=== PATIENT | male | born 1945 | race Caucasian/White ===

== ENCOUNTER 2018-01-15 07:53 | Inpatient (IN) | END 2018-01-23 16:05 | disposition home health service (06) | DRG 669 ==

== ENCOUNTER 2018-03-15 10:27 | Observation (INO) | payer OTHER ==
[~2018-03-15] VITALS: Ht 160 cm; Wt 63.1 kg
[~2018-03-15 10:27] MED LIST: ASPI81TA52 PO; ATOR20TA38 PO; CARV3.1260 PO; CIPR500T4 PO; DONE5TAB53 PO; OXYB5TAB22 PO; TAMS0.4C2 PO
--- NOTE | 2018-03-15 12:56 | ERD ---
ER Documentation Chief Complaint Chief Complaint LEFT FLANK PAIN - HAD KIDNEY SURGERY 2 MONTHS AGO; CATHETER PROBELM HPI 72-year-old man status post lithotripsy and left nephrostomy tube placement for hydronephrosis and large left ureteral stone about 2 months ago presents with left flank pain and decreased urine overall and decreased urine in the leg bag beginning last night. He complains of suprapubic distention and pain as well and suspects he has a urinary tract infection. He has had no recent fevers or chills, no recent antibiotic use, no vomiting or diarrhea, no complaints of chest pain or shortness of breath, no hematuria. ROS All systems reviewed and are negative except as per history of present illness. Medications Home Meds Active Scripts Carvedilol* (Carvedilol*) 3.125 Mg Tablet, 3.125 MG PO BID for 30 Days, TAB 3 Refills Prov:KAREEM CALIXTO 01/23/18 Reported Medications Clonidine Hcl* (Clonidine Hcl*) 0.1 Mg Tab, 0.1 MG PO DAILY, TAB 03/15/18 Famotidine* (Famotidine*) 20 Mg Tablet, 20 MG PO NEEDED, #30 TAB 03/15/18 Hydrochlorothiazide* (Hydrochlorothiazide*) 12.5 Mg Tablet, 12.5 MG PO NEEDED, #30 TAB 03/15/18 Ferrous Sulfate* (Ferrous Sulfate*) 325 Mg Tabec, 325 MG PO DAILY, TAB 03/15/18 Benazepril Hcl* (Benazepril Hcl*) 40 Mg Tablet, 40 MG PO DAILY, #30 TAB 03/15/18 Atorvastatin Calcium* (Atorvastatin Calcium*) 20 Mg Tablet, 20 MG PO QHS, #30 TAB 01/15/18 Donepezil* (Aricept*) 5 Mg Tablet, 5 MG PO DAILY, TAB 01/15/18 Tamsulosin Hcl* (Tamsulosin Hcl*) 0.4 Mg Cap.er.24h, 0.4 MG PO HS, CAP 01/15/18 Aspirin (Low Dose Aspirin) 81 Mg Tablet.dr, 81 MG PO DAILY, #30 TAB 01/15/18 Discontinued Reported Medications Oxybutynin Chloride* (Ditropan* XL) 5 Mg Tabsr, 5 MG PO DAILY, TAB.SA 01/15/18 Discontinued Scripts Ciprofloxacin Hcl* (Ciprofloxacin Hcl*) 500 Mg Tablet, 500 MG PO BID for 7 Days, #14 TAB Prov:KAREEM CALIXTO 01/23/18 Allergies Allergies: Coded Allergies: No Known Allergy (Unverified , 03/15/18) PMhx/Soc Left large ureteral stone, moderate-severe left hydronephrosis, status post lithotripsy and left nephrostomy tube, dementia, hypertension, CAD History of Surgery: Yes (CABG) Anesthesia Reaction: No Hx Neurological Disorder: Yes Hx Respiratory Disorders: No Hx Cardiac Disorders: Yes (heart attack) Hx Psychiatric Problems: No Hx Miscellaneous Medical Probl: No Hx Alcohol Use: No Hx Substance Use: No Hx Tobacco Use: No Physical Exam Vitals Vital Signs Date Temp Pulse Resp B/P (MAP) Pulse Ox O2 O2 Flow FiO2 Time Delivery Rate 03/15/18 97.8 73 18 113/69 99 Room Air 14:51 (84) 03/15/18 98.4 88 19 162/84 99 10:34 (110) Physical Exam GENERAL: Well-developed, well-nourished, moderate discomfort, afebrile, appears dehydrated HEENT: Dry mucous membranes, pink conjunctiva, no cervical spine tenderness or step-off deformities, no goiter, no jaundice or icterus, extraocular movements intact without pain. NEURO: Alert and oriented 3, cranial nerves II through XII intact bilaterally, pupils equal round reactive to light, no focal deficits or facial asymmetry, sensation intact distally Strength 5/5 in upper and lower extremities bilaterally CARDIAC: Regular rate and rhythm, no murmurs rubs or gallops LUNGS: Clear bilaterally no wheezing crackles or stridor ABDOMEN: Soft nontender, no guarding, no rigidity, no rebound, no psoas sign no obturator sign. Normoactive bowel sounds SKIN: Warm and dry to touch, no abrasions, contusions, or hematomas, no lacerations, no ecchymosis, no target lesions, and without ulcers EXTREMITIES: No clubbing cyanosis or edema, calves are bilaterally symmetrical, no Homans sign, no popliteal cord sign. Distal pulses equal and bilateral PSYCH: Normal affect without agitation or irritability Result Diagram: 03/15/18 1321 03/15/18 1321 Results 24 hrs Laboratory Tests Test 03/15/18 13:14 03/15/18 13:21 Urine Color YELLOW Urine Clarity CLOUDY Urine pH 5.0 Urine Specific [place] 1.017 Urine Ketones NEGATIVE mg/dL Urine Nitrite POSITIVE mg/dL Urine Bilirubin NEGATIVE mg/dL Urine Urobilinogen NEGATIVE mg/dL Urine Leukocyte Esterase 3+ Mack/ul Urine Microscopic RBC 110 /HPF Urine Microscopic WBC > 182 /HPF Urine Bacteria FEW /HPF Urine Hemoglobin 2+ mg/dL Urine Glucose NEGATIVE mg/dL Urine Total Protein 2+ mg/dl White Blood Count 8.4 10^3/ul Red Blood Count 4.43 10^6/ul Hemoglobin 13.8 g/dl Hematocrit 42.6 % Mean Corpuscular Volume 96.2 fl Mean Corpuscular Hemoglobin 31.2 pg Mean Corpuscular Hemoglobin Concent 32.4 g/dl Red Cell Distribution Width 12.7 % Platelet Count 227 10^3/UL Mean Platelet Volume 9.9 fl Immature Granulocytes % 0.400 % Neutrophils % 54.5 % Lymphocytes % 31.1 % Monocytes % 9.9 % Eosinophils % 3.5 % Basophils % 0.6 % Nucleated Red Blood Cells % 0.0 /100WBC Immature Granulocytes # 0.030 10^3/ul Neutrophils # 4.6 10^3/ul Lymphocytes # 2.6 10^3/ul Monocytes # 0.8 10^3/ul Eosinophils # 0.3 10^3/ul Basophils # 0.1 10^3/ul Nucleated Red Blood Cells # 0.0 10^3/ul Prothrombin Time 13.1 Sec Prothrombin Time Ratio 1.0 INR International Normalized Ratio 0.98 Activated Partial Thromboplast Time 34.5 Sec Sodium Level 143 mmol/L Potassium Level 4.2 mmol/L Chloride Level 105 mmol/L Carbon Dioxide Level 26 mmol/L Anion Gap 12 Blood Urea Nitrogen 16 mg/dl Creatinine 0.91 mg/dl Est Glomerular Filtrat Rate mL/min mL/min Glucose Level 101 mg/dl Calcium Level 9.9 mg/dl Total Bilirubin 0.3 mg/dl Direct Bilirubin 0.00 mg/dl Indirect Bilirubin 0.3 mg/dl Aspartate Amino Transf (AST/SGOT) 20 IU/L Alanine Aminotransferase (ALT/SGPT) 12 IU/L Alkaline Phosphatase 134 IU/L Total Protein 8.3 g/dl Albumin 4.5 g/dl Globulin 3.80 g/dl Albumin/Globulin Ratio 1.18 Lipase 54 U/L Current Medications Medications Dose Sig/Jenae Start Time Status Last (Trade) Ordered Route PRN Stop Time Admin Dose Reason Admin Lactated 1,000 ml @ Q1H STAT 03/15/18 DC 03/15/18 Ringer's 1,000 mls/hr IV 13:11 13:33 03/15/18 14:10 Ketorolac 15 mg ONCE STAT 03/15/18 DC 03/15/18 Tromethamine IV 13:11 13:33 (Toradol) 03/15/18 13:12 Cefepime HCl 50 ml @ ONCE ONCE 03/15/18 DC 03/15/18 100 mls/hr IVPB 14:30 14:46 03/15/18 14:59 Sodium 1,000 ml @ Q1H ONCE 03/15/18 DC 03/15/18 Chloride 1,000 mls/hr IV 15:00 14:46 03/15/18 15:59 Procedures/MDM IV line was established patient was placed on quality assurance monitor body rhythm strip revealed a sinus rhythm at about 80 bpm with upright P and T waves. Patient was afebrile I administered 1 L normal saline IV, Toradol 15 mg IV with good pain relief. CBC was unremarkable, electrolytes normal, liver function tests normal, coagulation profile normal CT scan of the abdomen and pelvis was performed, IMPRESSION: 1. Left percutaneous nephrostomy catheter and left ureteral stent are in place. There is mild to moderate left hydronephrosis, slightly improved when compared to the prior CT. 8 mm calculus is present within the mid/distal left ureter a djacent to the stent. 2. Coronary arterial and aortoiliac atherosclerotic calcifications. 3. Mildly enlarged prostate - correlate with PSA level. 4. No evidence of bowel obstruction, mass, lymphadenopathy, or acute inflammatory process. Urine analysis was positive for infection so I treated him here with cefepime 1 g IV. I also spoke to his urologist, Dr. Ayala who agreed with the above plan and management and agreed to consult the patient if admitted. The patient does have an active UTI and history of hydronephrosis, lithotripsy, and left nephrostomy tube so he will be admitted for continued IV hydration and IV antibiotics. Departure Diagnosis: Primary Impression: Acute UTI Additional Impressions: Dehydration Ureteral stone with hydronephrosis Condition: JUAN LUIS Vale MD Mar 15, 2018 12:56
[2018-03-15] MEDS ORDERED: KETOROLAC 15 MG INJ IV STA (13:11)
[2018-03-15] MEDS ORDERED: LACTATED RINGER'S 1,000 ML IV STA (13:11)
[2018-03-15] MEDS ORDERED: CEFEPIME 1GM/50 ML (PMX) 50 ML IVPB ONE (14:30)
[2018-03-15] MEDS ORDERED: BENA40TA56 PO (14:47)
[2018-03-15] MEDS ORDERED: HYDR12.58 PO (14:48)
[2018-03-15] MEDS ORDERED: FER325 PO (14:48)
[2018-03-15] MEDS ORDERED: FAMO20TA18 PO (14:49)
[2018-03-15] MEDS ORDERED: CLON-379 PO (14:50)
[2018-03-15] MEDS ORDERED: SOD CHLORIDE 0.9% 1,000 ML IV ONE (15:00)
[2018-03-15] MEDS ORDERED: SOD CHLORIDE 0.9% 1,000 ML IV SCH (18:54)
[2018-03-15] MEDS ORDERED: ONDANSETRON 4 MG INJ IV PRN (19:00)
[2018-03-15] MEDS ORDERED: ACETAMINOPHEN 325 MG TAB PO PRN (19:00)
--- NOTE | 2018-03-15 20:57 | CONS ---
Date/Time of Note Date/Time of Note DATE: 03/15/18 TIME: 20:52 Assessment/Plan Assessment/Plan Assessment/Plan This is a 72-year-old male who is well-known to me from his prior admission. He has a history of large left ureteral stone with obstruction. He underwent cystoscopy and left ureteroscopy and laser lithotripsy to the stone but the stone was occluding the ureter and impacted. He required to have a left ne phrostomy and had the radiologist put an antegrade JJ stent. I was planning on bringing the patient back to do ureteroscopy and laser lithotripsy again on the stone. He presented to the emergency room today stating that the left nephrostomy tube is not draining and having abdominal pain. He was evaluated by the emergency room physician and thought to have an infection therefore he was admitted to the hospital. He underwent a CT scan of the abdomen and pelvis and that showed the nephrostomy tube in place as well as a JJ stent and the stone still in the same location. At the present time we will treat the infection and once that is controlled I will try to do the ureteroscopy and laser lithotripsy. Result Diagram: 03/15/18 1321 03/15/18 1321 Results 24hrs Laboratory Tests Test 03/15/18 13:14 03/15/18 13:21 Urine Color YELLOW Urine Clarity CLOUDY A Urine pH 5.0 Urine Specific [place] 1.017 Urine Ketones NEGATIVE Urine Nitrite POSITIVE A Urine Bilirubin NEGATIVE Urine Urobilinogen NEGATIVE Urine Leukocyte Esterase 3+ H Urine Microscopic RBC 110 H Urine Microscopic WBC > 182 H Urine Bacteria FEW A Urine Hemoglobin 2+ H Urine Glucose NEGATIVE Urine Total Protein 2+ H White Blood Count 8.4 Red Blood Count 4.43 L Hemoglobin 13.8 L Hematocrit 42.6 # Mean Corpuscular Volume 96.2 Mean Corpuscular Hemoglobin 31.2 Mean Corpuscular Hemoglobin Concent 32.4 Red Cell Distribution Width 12.7 Platelet Count 227 # Mean Platelet Volume 9.9 Immature Granulocytes % 0.400 Neutrophils % 54.5 Lymphocytes % 31.1 Monocytes % 9.9 Eosinophils % 3.5 Basophils % 0.6 Nucleated Red Blood Cells % 0.0 Immature Granulocytes # 0.030 Neutrophils # 4.6 Lymphocytes # 2.6 Monocytes # 0.8 Eosinophils # 0.3 Basophils # 0.1 Nucleated Red Blood Cells # 0.0 Prothrombin Time 13.1 Prothrombin Time Ratio 1.0 INR International Normalized Ratio 0.98 Activated Partial Thromboplast Time 34.5 Sodium Level 143 Potassium Level 4.2 Chloride Level 105 Carbon Dioxide Level 26 Anion Gap 12 Blood Urea Nitrogen 16 Creatinine 0.91 Est Glomerular Filtrat Rate mL/min Glucose Level 101 Calcium Level 9.9 Total Bilirubin 0.3 Direct Bilirubin 0.00 Indirect Bilirubin 0.3 Aspartate Amino Transf (AST/SGOT) 20 Alanine Aminotransferase (ALT/SGPT) 12 L Alkaline Phosphatase 134 H Total Protein 8.3 H Albumin 4.5 Globulin 3.80 H Albumin/Globulin Ratio 1.18 Lipase 54 Consultation Date/Type/Reason Admit Date/Time Mar 15, 2018 at 18:06 Date of Consultation: Mar 15, 2018 Type of Consult Urology Reason for Consultation Left ureteral stone with hydronephrosis. Possible urinary tract infection Requesting Provider: JUAN LUIS MORA MD Hx of Present Illness This is a 72-year-old male who is well-known to me from his prior admission. He has a history of large left ureteral stone with obstruction. He underwent cystoscopy and left ureteroscopy and laser lithotripsy to the stone but the stone was occluding the ureter and impacted. He required to have a left nephrostomy and had the radiologist put an antegrade JJ stent. I was planning on bringing the patient back to do ureteroscopy and laser lithotripsy again on the stone. He presented to the emergency room today stating that the left nephrostomy tube is not draining and having abdominal pain. He was evaluated by the emergency room physician and thought to have an infection therefore he was admitted to the hospital. He underwent a CT scan of the abdomen and pelvis and that showed the nephrostomy tube in place as well as a JJ stent and the stone still in the same location. Past Medical History Medications Current Medications Sodium Chloride 1,000 ml @ 200 mls/hr Q5H IV Last administered on 03/15/18at 19:03; Admin Dose 200 MLS/HR; Start 03/15/18 at 18:54; Stop 03/15/18 at 23:53 Ondansetron HCl (Zofran Inj) 4 mg BRIDGE ORDER PRN IV NAUSEA AND/OR VOMITING; Start 03/15/18 at 19:00; Stop 03/16/18 at 18:59 Acetaminophen (Tylenol Tab) 650 mg ER BRIDGE PRN PO MILD PAIN(1-3)OR ELEVATED TEMP; Start 03/15/18 at 19:00; Stop 03/16/18 at 18:59 Allergies: Coded Allergies: No Known Allergy (Unverified , 03/15/18) Past Surgical History Past Surgical Hx: coronary bypass surgery Social History Smoking Status: Never smoker Exam/Review of Systems Vital Signs Vitals Vital Signs Date Temp Pulse Resp B/P (MAP) Pulse Ox O2 O2 Flow FiO2 Time Delivery Rate 03/15/18 81 16 133/71 97 Room Air 20:26 (91) 03/15/18 97.8 14:51 Exam Constitutional: alert Medications Medications Current Medications Sodium Chloride 1,000 ml @ 200 mls/hr Q5H IV Last administered on 03/15/18at 19:03; Admin Dose 200 MLS/HR; Start 03/15/18 at 18:54; Stop 03/15/18 at 23:53 Ondansetron HCl (Zofran Inj) 4 mg BRIDGE ORDER PRN IV NAUSEA AND/OR VOMITING; Start 03/15/18 at 19:00; Stop 03/16/18 at 18:59 Acetaminophen (Tylenol Tab) 650 mg ER BRIDGE PRN PO MILD PAIN(1-3)OR ELEVATED TEMP; Start 03/15/18 at 19:00; Stop 03/16/18 at 18:59 YE MOSELEY MD Mar 15, 2018 20:57
[2018-03-15 21:53] VITALS: BP 133/65; PULSE 74; RESP 18
[2018-03-15 22:29] VITALS: Ht 160 cm; Wt 63.1 kg
[2018-03-16] MEDS ORDERED: ONDANSETRON 4 MG INJ IV PRN (00:30)
[2018-03-16] MEDS ORDERED: morphine 2 MG INJ IV PRN (00:30)
[2018-03-16] MEDS ORDERED: LEVOFLOXACIN 500 MG TAB PO ONE (00:30)
[2018-03-16] MEDS ORDERED: KETOROLAC 30 MG INJ IV PRN (00:30)
[2018-03-16] MEDS ORDERED: ACETAMINOPHEN 325 MG TAB PO PRN (00:30)
[2018-03-16 01:32] VITALS: BP 119/64; PULSE 72; RESP 18
[2018-03-16] MEDS ORDERED: CEFTRIAXONE 1 GM/50 ML (PMX) 50 ML IVPB SCH (07:30)
[2018-03-16 07:32] VITALS: BP 114/69; PULSE 70; RESP 18
[2018-03-16] MEDS ORDERED: DONEPEZIL 5 MG TAB PO SCH (09:00)
[2018-03-16] MEDS ORDERED: FAMOTIDINE 20 MG TAB PO SCH (09:00)
[2018-03-16] MEDS ORDERED: BENAZEPRIL 40 MG TAB PO SCH (09:00)
--- NOTE | 2018-03-16 09:23 | HP ---
DATE OF ADMISSION: 03/15/2018 CHIEF COMPLAINT: Left flank pain. HISTORY OF PRESENT ILLNESS: A 72-year-old male with a history of large left ureteral stone status po st left ureteroscopy and laser lithotripsy followed by a nephrostomy placement, presented to emergenc y room with a complaint of left flank pain for several days. He reported that the left nephrostomy t ube was not draining. He was having abdominal pain. The patient denies any fevers or chills. No na usea or vomiting. He was evaluated by the urologist. CAT scan of the abdomen and pelvis that showed that the nephrostomy tube was in place as well as ureteral stent. Stone was still in the same locat ion with associated hydronephrosis. At the time of my visit, he denied any abdominal pain or flank p ain. The patient was ambulating comfortably. PAST MEDICAL HISTORY: 1. Recent history of left ureteral stone status post ureteral stent placement and nephrostomy placem ent. 2. Benign prostatic hyperplasia. 3. Hypertension. 4. Hyperlipidemia. 5. Alzheimer's dementia. PHYSICAL EXAMINATION: GENERAL: Well-developed, well-nourished elderly male, who is in no apparent distress. VITAL SIGNS: Stable. He is afebrile. HEENT: Extraocular muscles intact. Pupils equal, reactive to light bilaterally. Sclerae are anicte teddy. Oropharynx is clear and moist. NECK: Supple, no JVD, no carotid bruits. LUNGS: Clear to auscultation bilaterally. HEART: Regular rate and rhythm. No murmurs or gallops. ABDOMEN: Soft, nontender, nondistended. Normoactive bowel sounds. Left flank nephrostomy tube in p lace and no tenderness. NEUROLOGICAL: Nonfocal. EXTREMITIES: No clubbing, cyanosis, or edema. LABORATORY DATA: CBC and basic metabolic panel are within normal limits. ASSESSMENT: A 72-year-old male with a complaint of; 1. Left flank pain. 2. Urinary tract infection. 3. Left ureteral stone status post ureteral stent placement. 4. Status post left nephrostomy placement. 5. Hypertension. 6. Hyperlipidemia. 7. Benign prostatic hyperplasia. 8. Alzheimer's dementia. PLAN: 1. Admit to med/surg. Continue Rocephin 1 gram daily. Check blood and urine culture results. Dr. Ayala was consulted and the case was discussed with him. 2. Proceed with a lithotripsy in 3 days. Dictated By: FELICIANO MCGRAW/NASRIN Conf#: [id number] DID#: [id number] CC: RAYMUNDO QUIÑONEZ MD;*EndCC*
[2018-03-16] MEDS ORDERED: CEPH500C PO (09:31)
--- NOTE | 2018-03-16 14:20 | DS ---
DATE OF ADMISSION: 03/15/2018 DATE OF DISCHARGE: DISCHARGE DIAGNOSES: 1. A 72-year-old male with left flank pain, resolved. 2. History of left ureteral stone, status post ureteral stent placement. 3. Status post left nephrostomy tube placement. 4. Hypertension. 5. Benign prostatic hyperplasia. 6. Hyperlipidemia. HOSPITAL COURSE: A 72-year-old male presented to the emergency room with complaints of left flank pa in for several days. There was no associated fever or chills. Initial evaluation included a CAT sca n that revealed nephrostomy tube was in place and the stent was also in place. The patient was evalu ated by Dr. Ayala. At the time of my visit, he was asymptomatic. There was no complaint of flank pain or abdominal pain. Urinalysis revealed evidence of UTI which was infected with stent in place. There was no associated leukocytosis. I prescribed Keflex 500 mg 3 times daily for 7 days. The pat ient was cleared by Dr. Ayala for discharge. He will follow up with Dr. Ay[facility] to undergo lithotripsy after the urine is clean. Dictated By: FELICIANO RAMIREZ MD SK/NTS Conf#: [id number] DID#: [id number] CC: RAYMUNDO QUIÑONEZ MD; YE AYALA MD;*End*
[2018-03-16 14:32] VITALS: BP 108/58; PULSE 70; RESP 16
[2018-03-16] MEDS ORDERED: ATORVASTATIN 20 MG TAB PO SCH (21:00)
[2018-03-16] MEDS ORDERED: TAMSULOSIN (SR) 0.4 MG CAP PO SCH (21:00)
== END 2018-03-16 15:20 | disposition home health service (06) ==
LOC: E/R 10:27 → 2NE 18:06
PROVIDERS: ADMIT Internal Medicine; ATTEND Internal Medicine
DX: T83.511A Infection and inflammatory reaction due to indwelling urethral catheter, initial encounter (principal); N39.0 Urinary tract infection, site not specified; Y84.6 Urinary catheterization as the cause of abnormal reaction of the patient, or of later complication, without mention of misadventure at the time of the procedure; N40.1 Benign prostatic hyperplasia with lower urinary tract symptoms; I10 Essential (primary) hypertension; E78.5 Hyperlipidemia, unspecified; Z93.6 Other artificial openings of urinary tract status
CPT/HCPCS: 36415; 74176; 80053; 80061; 80076; 81001; 83690; 85025; 85610; 85730; 87086; 96374; 96375; J0692; J0696; J1885; J7030; J7120; Z7500; Z7502; Z7610; G0378

== ENCOUNTER 2018-03-23 10:30 | Day surgery (SDC) | payer OTHER ==
[2018-03-23] VITALS (12 sets, daily range): BP systolic 127–155; BP diastolic 67–99; PULSE 70–96; RESP 9–18; Ht 157.5 cm; Wt 62.5 kg
[~2018-03-23] VITALS: Ht 157.5 cm; Wt 62.5 kg
[~2018-03-23 10:30] MED LIST changes: +BENA40TA56 PO; +CEPH500C PO; -CIPR500T4 PO; +CLON-379 PO; +FAMO20TA18 PO; +FER325 PO; +HYDR12.58 PO; +MIDAZOLAM 1 MG/ML 2 ML INJ ONE; -OXYB5TAB22 PO; +SEVOFLURANE 15 MIN ONE
--- NOTE | 2018-03-23 12:15 | HPN ---
Date/Time of Note Date/Time of Note DATE: 03/23/18 TIME: 12:14 Interval H&P Admission Note Pt. seen H&P reviewed: No system changes YE MOSELEY MD Mar 23, 2018 12:15
--- NOTE | 2018-03-23 12:41 | PREAC ---
Date/Time of Note Date/Time of Note DATE: 03/23/18 TIME: 12:38 Anesthesia Eval and Record Evaluation Time Pre-Procedure Interview DATE: 03/23/18 TIME: 12:38 Age 72 Sex male NPO: 8 hrs Preoperative diagnosis Left Ureter stone Planned procedure Cystoscopy and Left Ureteroscopy and Lithotripsy and stent placement Past Medical History Past Medical History: Includes Cardio: HTN, Dyslipidemia Renal: Other (Kiney Stone) Surgery & Anesthesia Issues No known issue Meds Anticoagulation: No Beta [place] within 24 hr: No Reason Beta [place] not given: Pt. not on B-[place] Active Scripts Cephalexin* (Cephalexin*) 500 Mg Capsule, 500 MG PO Q8 for 7 Days, #21 CAP Prov:FELICIANO RAMIREZ MD 03/16/18 Carvedilol* (Carvedilol*) 3.125 Mg Tablet, 3.125 MG PO BID for 30 Days, TAB 3 Refills Prov:KAREEM CALIXTO 01/23/18 Reported Medications Clonidine Hcl* (Clonidine Hcl*) 0.1 Mg Tab, 0.1 MG PO DAILY, TAB 03/15/18 Famotidine* (Famotidine*) 20 Mg Tablet, 20 MG PO NEEDED, #30 TAB 03/15/18 Hydrochlorothiazide* (Hydrochlorothiazide*) 12.5 Mg Tablet, 12.5 MG PO NEEDED, #30 TAB 03/15/18 Ferrous Sulfate* (Ferrous Sulfate*) 325 Mg Tabec, 325 MG PO DAILY, TAB 03/15/18 Benazepril Hcl* (Benazepril Hcl*) 40 Mg Tablet, 40 MG PO DAILY, #30 TAB 03/15/18 Atorvastatin Calcium* (Atorvastatin Calcium*) 20 Mg Tablet, 20 MG PO QHS, #30 TAB 01/15/18 Donepezil* (Aricept*) 5 Mg Tablet, 5 MG PO DAILY, TAB 01/15/18 Tamsulosin Hcl* (Tamsulosin Hcl*) 0.4 Mg Cap.er.24h, 0.4 MG PO HS, CAP 01/15/18 Aspirin (Low Dose Aspirin) 81 Mg Tablet.dr, 81 MG PO DAILY, #30 TAB 01/15/18 Meds reviewed: Yes Allergies Coded Allergies: No Known Allergy (Unverified , 03/23/18) Allergies Reviewed: Yes Labs/Studies Labs Reviewed: Reviewed by anesthesiologist test: N/A Studies: ECG (NSR), CXR (n/a) Pre-procedure Exam Last vitals Vital Signs Date Temp Pulse Resp B/P (MAP) Pulse Ox O2 O2 Flow FiO2 Time Delivery Rate 03/23/18 97.9 74 18 128/77 96 Room Air 11:32 (94) Airway: Adequate mouth opening, Adequate thyromental dist Mallampati: Mallampati II Teeth: Normal Lung: Normal Heart: Normal ASA Physical Status ASA physical status: 3 Emergency: None Planned Anesthetic General/MAC: LMA Planned Pain Management Parenteral pain med Pre-operative Attestations Prior to commencing anesthesia and surgery, the patient was re-evaluated, there was verification of: *The patient's identity *The results of appropriate recent lab work and preoperative vital signs *The above evaluation not changing prior to induction *Anesthetic plan, risk benefits, alternative and complications discussed with patient/family; questions answered; patient/family understands, accepts and wishes to proceed. FRANCO GARCIA MD Mar 23, 2018 12:41
[2018-03-23] MEDS ORDERED: FENTAnyl 50 MCG/ML VIAL ONE (12:44)
[2018-03-23] MEDS ORDERED: EPHEDrine SULFATE 50 MG/5 ML SYG ONE (12:57)
[2018-03-23] MEDS ORDERED: CEFAZOLIN 1 GM INJ ONE (12:58)
[2018-03-23] MEDS ORDERED: ROCURONIUM 50 MG INJ ONE ×2 (12:58→14:05)
[2018-03-23] MEDS ORDERED: PROPOFOL 20 ML ONE (12:58)
[2018-03-23] MEDS ORDERED: DIPHENHYDRAMINE 50 MG INJ IV PRN (13:00)
[2018-03-23] MEDS ORDERED: hydrALAzine 20 MG INJ IV PRN (13:00)
[2018-03-23] MEDS ORDERED: HYDROmorphONE 1 MG/5 ML IV SYRINGE IV PRN ×3 (13:00)
[2018-03-23] MEDS ORDERED: LABETALOL HCL 20MG INJ IV PRN (13:00)
[2018-03-23] MEDS ORDERED: ONDANSETRON 4 MG INJ IV PRN (13:00)
[2018-03-23] MEDS ORDERED: MEPERIDINE 25 MG INJ IV PRN (13:00)
[2018-03-23] MEDS ORDERED: FENTAnyl 50 MCG/ML VIAL IV PRN ×3 (13:00)
[2018-03-23] MEDS ORDERED: OXYCODONE/ACETAMINOPHEN (5/325) TAB PO PRN (13:00)
[2018-03-23] MEDS ORDERED: EPHEDrine SULFATE 50 MG/5 ML SYG IV PRN (13:00)
[2018-03-23] MEDS ORDERED: METOCLOPRAMIDE 10 MG INJ IV PRN (13:00)
[2018-03-23] MEDS ORDERED: DEXAMETHASONE 4 MG/ML 5 ML INJ ONE (13:20)
[2018-03-23] MEDS ORDERED: ONDANSETRON 4 MG INJ ONE (13:20)
[2018-03-23] MEDS ORDERED: METOCLOPRAMIDE 10 MG INJ ONE (13:20)
[2018-03-23] MEDS ORDERED: KETOROLAC 30 MG INJ ONE (13:20)
[2018-03-23] MEDS ORDERED: NEOSTIGMINE 3 MG/3 ML SYRINGE ONE (14:19)
[2018-03-23] MEDS ORDERED: GLYCOPYRROLATE 0.4 MG INJ ONE (14:19)
--- NOTE | 2018-03-23 14:36 | PAC ---
Date/Time of Note Date/Time of Note DATE: 03/23/18 TIME: 14:35 Post-Anesthesia Notes Post-Anesthesia Note Last documented vital signs Vital Signs Date Temp Pulse Resp B/P (MAP) Pulse Ox O2 O2 Flow FiO2 Time Delivery Rate 03/23/18 97.9 74 18 128/77 96 Room Air 14:32 (94) Activity: WNL Respiratory function: WNL Cardiovascular function: WNL Mental status: Baseline Pain reasonably controlled: Yes Hydration appropriate: Yes Nausea/Vomiting absent: Yes FRANCO GARCIA MD Mar 23, 2018 14:35
--- NOTE | 2018-03-23 14:45 | OPR ---
Date/Time of Note Date/Time of Note DATE: 03/23/18 TIME: 14:37 Operative Report Procedure Date: Mar 23, 2018 Preoperative Diagnosis Left mid ureteral stone with obstruction Postoperative Diagnosis Same Operation/Procedure Performed Cystoscopy, left ureteroscopy, laser lithotripsy, removal and replacement of left ureteral JJ stent and removal of left nephrostomy tube Surgeon see signature line Evaporator Operator Molasses Lul Cuenca Anesthesia Type: general Anesthesiologist: FRANCO GARCIA MD Estimated Blood Loss: none Transfusion none Specimen Left ureteral stone fragments Grafts/Implants none Tubes/Drains Left ureteral JJ stent 6 [place] by 22 cm long Complications none Pt Condition Post Procedure: stable Disposition: PACU Indications Large left mid ureteral stone with obstruction Procedure Description The patient was brought to the operating room. Time out was done the patient was identified by her name, birthdate, the procedure and the side of the procedure. The patient was given 2 g of Ancef IV at the start of the procedure. The patient was then positioned in the lithotomy position and the genital area was prepped and draped in the usual sterile manner. #21 [place] cystoscope sheath was introduced into the bladder, urine was collected for culture and sensitivity. The distal end of the left ureteral JJ stent was then grasped and pulled out to the urethral meatus. The distal curl of the stent was then cut and then I introduced a 0.035 zip wire into the lumen and advanced it under fluoroscopy all the way up to the kidney. The old JJ stent was then removed. A dual lumen catheter was then advanced on the wire and through the second lumen of the catheter a 0.035 sensor wire was passed to the kidney. The dual-lumen was then removed and the sensor wire was used as a safety wire and secured, the other wire was used to advance the rigid ureteroscope on it. The ureteroscope was advanced to the level of the stone, the stone was visualized, then the wire was removed and the 265 m laser fiber was used and the holmium laser was used to break the stone into multiple pieces. these pieces were then basketed one at a time and dropped into the bladder, multiple pieces were large that needed further breaking by the laser and once that was done the remaining stone fragments were removed and the ureter was cleared completely from the stone fragments. Then I did the cystoscopy and drained all the stone fragments out of the bladder. Then I reintroduced the cystoscope on the safety wire and inserted a 6 [place] by 22 cm long JJ stent in the left ureter under fluoroscopy, had its proximal end curling into the kidney and the distal end curling into the bladder. The distal end is attached to a string that was brought out through the urethra and taped with 2 pieces of Tegaderm to his penis. I then remove the dressing over his nephrostomy tube and got the nephrostomy and pulled it out of him. A dressing was put on the site of the nephrostomy. The patient tolerated the procedure well and was transferred to recovery room in stable and satisfactory condition YE MOSELEY MD Mar 23, 2018 14:44
[2018-03-23] MEDS ORDERED: HYDROCODONE/APAP (5/325) TAB PO PRN (15:00)
== END 2018-03-23 16:44 | disposition home or self-care (01) ==
LOC: SDS 10:30
PROVIDERS: ATTEND Urology
DX: N20.1 Calculus of ureter (principal)
CPT/HCPCS: 52353; 74430; 87086; J0690; J1100; J1885; J2405; J2710; J2765; J3010; Z7610; 88300; C2617; J2250

== ENCOUNTER 2018-05-03 12:15 | Inpatient (IN) | payer OTHER ==
[~2018-05-03] VITALS: Wt 77.2 kg
[~2018-05-03 12:15] MED LIST changes: -MIDAZOLAM 1 MG/ML 2 ML INJ ONE; -SEVOFLURANE 15 MIN ONE
[2018-05-03] MEDS ORDERED: SOD CHLORIDE 0.9% 1,000 ML IV STA (12:33)
[2018-05-03] MEDS ORDERED: ONDANSETRON 4 MG INJ IV STA (13:23)
--- NOTE | 2018-05-03 13:55 | STROKE ---
Date/Time of Note Date/Time of Note DATE: 05/03/18 TIME: 16:43 Patient Information General Patient location: emergency Arrival Date Age 72 Gender male Weight 77.2 kg POC Glucose Glucose Result Bedside Glucose - 72 Hours Test 05/03/18 12:59 Bedside Glucose 148 mg/dL (70-220) Vital Signs Vital Signs Vital Signs Date Temp Pulse Resp B/P (MAP) Pulse Ox O2 O2 Flow FiO2 Time Delivery Rate 05/03/18 Nasal 2 12:50 Cannula 05/03/18 98.2 67 20 144/61 98 12:22 (88) Patient History Current Medications Allergies: Coded Allergies: No Known Allergy (Unverified , 03/23/18) Labs Coagulation Labs: Coagulation Test 05/03/18 12:40 Activated Partial Thromboplast Time 30.3 Sec (23.0-35.0) History & Physical History of Present Illness 72yo man h/o prior stroke w/ residual right sided weakness and dysarthria consulted for acute storke. LKWT 9:30pm This morning, woke up at 8:30, and unable to stand up on this feet associated with dizziness. Also had trouble talking. +nausea a bit better. Feels dysarthria and right sided weakness is worse today. On aspirin+plavix. On lipitor 80mg daily. 2 days ago, had headche but not significant now. Developed crampy feeling in stomach yesterday. Speech slurred and weak on right side since jan 2018. NIH Stroke Scale NIH Stroke Scale Ovmai8Km l4d LOC Questions: Qtcaz8u LOC Commands: Ectpk2h t Gaze: Yvtnt0h Cgxvc9a alsy: Jeklh1h or Arm - Left: Rvhne7k ight: Ocxfe5k eft: Umnlp5n ight: Qdnzz3i Whfxf7m Enmii0n est Language: Cbyia0e woodrow: Qlknp3i ction and Qcnol1q 4Bd Total Score: Duuvc9w Date/Time Recorded DATE: 05/03/18 TIME: 16:43 Submitted By Chloe De La Vega t-PA Imaging Review Date/Time Imaging Reviewed DATE: 05/03/18 TIME: 16:[address]: no acute findings, hypodensity in left striatocapsular area t-PA Administration Weight 77.2 kg Recommedation submitted by Chloe De La Vega Recommendations Recommendation Possible ischemic stroke. Rec further evaluation for stroke including MRI head, vessel imaging, continuation of home DAPT+statin once passes bedside swallow eval, telemetry, TTE, evaluation of stroke risk factors, fluids to help with perfusion, permissive HTN, PT/OT/ST. Also rec workup to r/o any abdominal patho logy, metabolic derangements, infection, as can worsen prior stroke sxs. CHLOE DE LA VEGA May 03, 2018 13:54
[2018-05-03] MEDS ORDERED: ONDANSETRON 4 MG INJ IV PRN ×2 (17:30)
[2018-05-03] MEDS ORDERED: ACETAMINOPHEN 325 MG TAB PO PRN (17:30)
[2018-05-03] MEDS ORDERED: NACL 0.9% 3 ML SYG IV SCH (17:30)
[2018-05-03] MEDS ORDERED: CEFTRIAXONE 1 GM/50 ML (PMX) 50 ML IVPB ONE (18:00)
--- NOTE | 2018-05-03 18:06 | ERD ---
ER Documentation Chief Complaint Chief Complaint complaints of aloc since 10am, pt has no SANTOS, no distress. bs 156 HPI 72-year-old male with a history of cardiac disease and recently diagnosed CVA last week on MRI brought in by ambulance with for difficulty speaking since 10 AM today. However his nausea and vomiting started around 8:30 AM today. He has right-sided weakness which is chronic for him since January 2018. Last week he had an MRI of the brain ordered by his primary care doctor. Stroke was noticed that he was admitted for 1 day to an outside hospital and discharged home. Currently he is on blood thinners at home. He is unable to answer any other questions with regards to his symptoms. He is actively vomiting on exam. ROS Unable to obtain Medications Home Meds Active Scripts Cephalexin* (Cephalexin*) 500 Mg Capsule, 500 MG PO Q8 for 7 Days, #21 CAP Prov:FELICIANO RAMIREZ MD 03/16/18 Carvedilol* (Carvedilol*) 3.125 Mg Tablet, 3.125 MG PO BID for 30 Days, TAB 3 Refills Prov:KAREEM CALIXTO 01/23/18 Reported Medications Clonidine Hcl* (Clonidine Hcl*) 0.1 Mg Tab, 0.1 MG PO DAILY, TAB 03/15/18 Famotidine* (Famotidine*) 20 Mg Tablet, 20 MG PO NEEDED, #30 TAB 03/15/18 Hydrochlorothiazide* (Hydrochlorothiazide*) 12.5 Mg Tablet, 12.5 MG PO NEEDED, #30 TAB 03/15/18 Ferrous Sulfate* (Ferrous Sulfate*) 325 Mg Tabec, 325 MG PO DAILY, TAB 03/15/18 Benazepril Hcl* (Benazepril Hcl*) 40 Mg Tablet, 40 MG PO DAILY, #30 TAB 03/15/18 Atorvastatin Calcium* (Atorvastatin Calcium*) 20 Mg Tablet, 20 MG PO QHS, #30 TAB 01/15/18 Donepezil* (Aricept*) 5 Mg Tablet, 5 MG PO DAILY, TAB 01/15/18 Tamsulosin Hcl* (Tamsulosin Hcl*) 0.4 Mg Cap.er.24h, 0.4 MG PO HS, CAP 01/15/18 Aspirin (Low Dose Aspirin) 81 Mg Tablet.dr, 81 MG PO DAILY, #30 TAB 11/12/18 Allergies Allergies: Coded Allergies: No Known Allergy (Unverified , 03/23/18) PMhx/Soc History of Surgery: Yes (ESWL, UROSTOMY LEFT ,CABG 10 YRS) Anesthesia Reaction: No Hx Neurological Disorder: No Hx Respiratory Disorders: No Hx Cardiac Disorders: Yes (HTN,HLP, BPH CALCULUS OF THE URETER) Hx Psychiatric Problems: Yes (MILD DEMENTIA) Hx Miscellaneous Medical Probl: No Hx Alcohol Use: No Hx Substance Use: No Hx Tobacco Use: No Smoking Status: Former smoker FmHx Unable to obtain Physical Exam Vitals Vital Signs Date Temp Pulse Resp B/P (MAP) Pulse Ox O2 O2 Flow FiO2 Time Delivery Rate 05/03/18 97.8 59 17 123/73 100 Nasal 2.0 16:46 (90) Cannula 05/03/18 57 18 131/76 100 Nasal 2.0 13:48 (94) Cannula 05/03/18 Nasal 2 12:50 Cannula 05/03/18 98.2 67 20 144/61 98 12:22 (88) Physical Exam Const: Ill-appearing, nontoxic, somewhat pale Head: Atraumatic Eyes: Normal Conjunctiva, PERRLA, EOMI, mild right-sided horizontal nystagmus ENT: Dry mucous membranes Neck: Full range of motion. No meningismus. Resp: Clear to auscultation bilaterally Cardio: Regular rate and rhythm, no murmurs Abd: Soft, non tender, non distended. Normal bowel sounds Skin: No petechiae or rashes Back: No midline or flank tenderness Ext: No cyanosis, or edema Neur: Awake and alert, difficulty with speech but able to understand me. Tries to answer questions. Minimal right sided diminished strength, more than the left but overall has weakness. Gait not tested. Psych: Normal Mood and Affect Result Diagram: 05/03/18 1240 05/03/18 1240 Results 24 hrs Laboratory Tests Test 05/03/18 12:40 05/03/18 12:59 05/03/18 16:38 White Blood Count 8.8 10^3/ul Red Blood Count 4.56 10^6/ul Hemoglobin 14.0 g/dl Hematocrit 42.2 % Mean Corpuscular Volume 92.5 fl Mean Corpuscular Hemoglobin 30.7 pg Mean Corpuscular 33.2 g/dl Hemoglobin Concent Red Cell Distribution Width 13.2 % Platelet Count 208 10^3/UL Mean Platelet Volume 10.2 fl Immature Granulocytes % 0.800 % Neutrophils % 52.5 % Lymphocytes % 39.6 % Monocytes % 5.4 % Eosinophils % 0.9 % Basophils % 0.8 % Nucleated Red Blood Cells % 0.0 /100WBC Immature Granulocytes # 0.070 10^3/ul Neutrophils # 4.6 10^3/ul Lymphocytes # 3.5 10^3/ul Monocytes # 0.5 10^3/ul Eosinophils # 0.1 10^3/ul Basophils # 0.1 10^3/ul Nucleated Red Blood Cells # 0.0 10^3/ul Prothrombin Time 12.5 Sec Prothrombin Time Ratio 1.0 INR International 0.92 Normalized Ratio Activated Partial Thromboplast 30.3 Sec Time Sodium Level 140 mmol/L Potassium Level 4.3 mmol/L Chloride Level 108 mmol/L Carbon Dioxide Level 22 mmol/L Anion Gap 10 Blood Urea Nitrogen 13 mg/dl Creatinine 0.74 mg/dl Est Glomerular Filtrat mL/min Rate mL/min Glucose Level 168 mg/dl Hemoglobin A1c 6.4 % Calcium Level 9.5 mg/dl Total Bilirubin 0.2 mg/dl Direct Bilirubin 0.00 mg/dl Indirect Bilirubin 0.2 mg/dl Aspartate Amino 28 IU/L Transf (AST/SGOT) Alanine 36 IU/L Aminotransferase (ALT/SGPT) Alkaline Phosphatase 118 IU/L Creatine Kinase 50 IU/L Creatine Kinase Index 0.4 Creatinine Kinase MB (Mass) < 0.22 ng/ml Troponin I < 0.012 ng/ml Total Protein 6.9 g/dl Albumin 4.0 g/dl Triglycerides Level 129 mg/dl Cholesterol Level 161 mg/dl LDL Cholesterol, Calculated 101 mg/dl HDL Cholesterol 34 mg/dl Cholesterol/HDL Ratio 4.7 RATIO Lipase 73 U/L Ethyl Alcohol Level < 10.0 mg/dl Bedside Glucose 148 mg/dL Urine Color YELLOW Urine Clarity CLEAR Urine pH 5.0 Urine Specific [place] 1.016 Urine Ketones NEGATIVE mg/dL Urine Nitrite NEGATIVE mg/dL Urine Bilirubin NEGATIVE mg/dL Urine Urobilinogen NEGATIVE mg/dL Urine Leukocyte Esterase 1+ Mack/ul Urine Microscopic RBC 3 /HPF Urine Microscopic WBC 18 /HPF Urine Bacteria MODERATE /HPF Urine Hemoglobin 1+ mg/dL Urine Glucose NEGATIVE mg/dL Urine Total Protein NEGATIVE mg/dl Urine Opiates Screen Negative Urine Barbiturates Negative Urine Amphetamines Screen Negative Urine Benzodiazepines Screen Negative Urine Cocaine Screen Negative Urine Cannabinoids Negative Current Medications Medications Dose Sig/Jenae Start Time Status Last (Trade) Ordered Route PRN Stop Time Admin Dose Reason Admin Sodium 1,000 ml @ Q1H STAT 05/03/18 DC 05/03/18 Chloride 1,000 mls/hr IV 12:33 13:30 05/03/18 13:32 Ondansetron 4 mg ONCE STAT 05/03/18 DC 05/03/18 HCl (Zofran IV 13:23 13:30 Inj) 05/03/18 13:24 Ondansetron 4 mg ER BRIDGE 05/03/18 HCl (Zofran PRN IV 17:30 05/04/18 Inj) NAUSEA/VOMITI 17:29 NG 650 mg ER BRIDGE 05/03/18 Acetaminophen PRN PO 17:30 05/04/18 (Tylenol .MILD PAIN 17:29 Tab) 1-3 OR TEMP IV Flush 3 ml PER 05/03/18 (NS 3 ml) PROTOCOL IV 17:30 Ondansetron 4 mg Q6H PRN 05/03/18 HCl (Zofran IV 17:30 Inj) NAUSEA/VOMITI NG Famotidine 20 mg Q12 IV 05/03/18 (Pepcid Iv) 21:00 Potassium 1,000 ml @ Q10H IV 05/03/18 Chloride/Dext 100 mls/hr 18:00 aleida/ Sod Cl Procedures/MDM EMERGENT LABS AND DIAGNOSTIC STUDIES: Lab Results above were reviewed and interpreted by me. CBC: no anemia or evidence of infection CMP: No evidence of electrolyte abnormality, renal failure, hypoglycemia, liver failure, or biliary obstruction Lipase: no evidence of pancreatitis Troponin within normal limits, not indicative of cardiac ischemia UA: Findings consistent with possible UTI Urine drug screen negative Alcohol level negative 12-lead EKG was interpreted by Vicky Coppola MD: Sinus bradycardia at 59 bpm Normal axis Normal intervals No acute ST or T wave changes suggestive of acute ischemia or STEMI. Radiology Results as interpreted by Radiology below were reviewed by Florence Coppola MD: Chest x-ray shows bibasilar discoid atelectasis, no consolidations or other abnormalities CT head shows no acute abnormalities, old strokes noted MRA brain is pending Initial Nursing notes reviewed. Previous Medical Records requested via the Electronic Health Record. EMERGENCY DEPARTMENT COURSE / MEDICAL DECISION MAKING: Patient is presenting with altered mental status and expressive aphasia. He does have right-sided deficits which are old. Code stroke was activated as the patient's last known well was about [address] head did not show any new abnormalities but old strokes were noted as previously seen in January 2018. Labs did not show any other significant abnormalities other than possible UTI. The etiology of his altered mental status, nausea, vomiting and dizziness are unclear. I spoke with the tele-neurologist on-call who evaluated the patient, Dr. Guo. He recommended an MRI and did not recommend CTA. Patient's neurologic symptoms are concerning for acute TIA/stroke, infectious, or metabolic cause and will require inpatient workup and continuous monitoring. Further w/u for will be deferred to the inpatient team. Neuro Critical Care: Critical Care Time: 40 minutes Treatments/Evaluations: Continuous neurologic and cardiovascular monitoring for deterioration of neurologic function and complications, while obtaining immediate neurologic imaging. Considerations made for TPA and invasive therapy with discussions with family. TPA Criteria Assessment: Patient is not a TPA candidate because: Last known normal > 3 hours Minimal or rapidly improving symptoms Anticoagulant Use History of CVA Accepting Care Team: Current data and ongoing care discussed. Time: Time of admission Primary Provider: Dr. Ramirez Consulting: Dr. Rvai Guo Outstanding Data: MRI of brain Departure Diagnosis: Primary Impression: Altered mental status Altered mental status type: unspecified Qualified Codes: R41.82 - Altered mental status, unspecified Additional Impressions: Nausea and vomiting Vomiting type: unspecified Vomiting Intractability: non-intractable Qualified Codes: R11.2 - Nausea with vomiting, unspecified Dizziness History of multiple strokes Condition: JARAD Acharya MD May 03, 2018 18:01
[2018-05-03 19:02] VITALS: BP 141/67; PULSE 59; RESP 12
[2018-05-03 19:06] VITALS: PULSE 57
[2018-05-03 19:41] VITALS: BP 129/80; PULSE 60; RESP 15
--- NOTE | 2018-05-03 19:55 | CONS ---
DATE OF ADMISSION: 05/03/2018 DATE OF CONSULTATION: HISTORY OF PRESENT ILLNESS: The patient is 72 years male with a past medical history of hypertension , stroke, dyslipidemia, memory disorder, cardiac disease, coronary artery disease. The patient was a dmitted with possibility of syncope, nausea and vomiting, in which I get a call about him for more ev aluation and treatment. CURRENT MEDICATIONS: Include: 1. Aspirin 81 mg once a day. 2. Aricept 5 mg once a day. 3. Lipitor 20 mg once a day. 4. Benazepril 40 mg once a day. 5. mg once a day. 6. Hydrochlorothiazide 12.5 mg once a day. 7. Pepcid 20 mg once a day. 8. Clonidine 0.1 mg every 6 hours as needed. ALLERGIES: NO ALLERGY of KNOWN MEDICATION. PAST MEDICAL HISTORY: Includes coronary artery disease, hypertension, dyslipidemia, stroke. PHYSICAL EXAMINATION: GENERAL: Today, the patient is alert, awake, oriented, follows simple commands, speaks Burmese only . CRANIAL NERVES: Cranial nerve II: Pupils equal both sides, reactive to light. Cranial nerves III, IV and : Extraocular muscles are intact without nystagmus. Cranial nerve V: Equal sensation to f cony. Cranial nerve VII: Symmetrical face. Cranial nerve VIII: Decreased hearing bilaterally. Reference Librarian nial IX and X: Elevates palate. Cranial nerve XI: Elevates shoulder is 5/5. Cranial nerve XII: W ith straight tongue. MOTOR: Moving both upper and lower extremities against gravity. Sensation, coordination and sensati on is equal on both sides for light touch and temperature. COORDINATION: Zcqywe-qy-dzrb test is intact. HEART: Regular rate and rhythm. LUNGS: Equal breath sounds. ABDOMEN: Soft, relaxed, nondistended, no tenderness. ASSESSMENT AND PLAN: 1. The patient is 72 years old male with syncopal attack. 2. Possibility of underlying transient ischemic attack. Follow up the patient with MRI, carotid Dop pler and 2D echocardiogram. 3. Possibility of underlying seizure. We will follow up the patient with electroencephalogram for m ore evaluation and treatment. Keep the patient under seizure precaution. Add for him Plavix 75 mg f or stroke prophylaxis. 4. The patient has a history of coronary artery disease as well as dyslipidemia, hypertension and wi ll follow up the patient after the electroencephalogram. 5. Keep the patient under fall precaution, seizure precaution for now. 6. Hypertension. Keep the blood pressure at the level of 140/90 to avoid any extension of the strok e. 7. History of dyslipidemia. Continue the patient on Lipitor 20 mg once a day. 8. History of memory disorder, in which the patient is on Aricept 5 mg once a day. Again, thank you for asking me to see the patient with you. Dictated By: UZAIR CENTENO MD NA/NTS Conf#: [id number] DID#: [id number] CC: FELICIANO RAMIREZ MD;*EndCC*
[2018-05-03 20:14] VITALS: PULSE 56
[2018-05-03] MEDS ORDERED: FAMOTIDINE 20 MG INJ IV SCH (21:00)
[2018-05-03] MEDS: D5W-0.45 NACL + KCL 10 MEQ 1,000 ML IV SCH (22:27)
[2018-05-04] VITALS (15 sets, daily range): BP systolic 125–154; BP diastolic 66–78; PULSE 49–67; RESP 16–19
[2018-05-04] MEDS: D5W-0.45 NACL + KCL 10 MEQ 1,000 ML IV SCH ×2 (08:29→14:00)
[2018-05-04] MEDS: CLOPIDOGREL 75 MG TAB PO SCH (09:00)
[2018-05-04] MEDS ORDERED: PANT40TA3 PO (09:23)
[2018-05-04] MEDS ORDERED: APIX5TAB PO (09:23)
--- NOTE | 2018-05-04 09:24 | PDOCDIS ---
Discharge Instructions CONDITION [id number] Patient Condition: Kdlen8a Good HOME CARE INSTRUCTIONS: Gbeke3Ma Diet Instructions: Kexoi9k y FOLLOW UP/APPOINTMENTS Follow-up Plan pcp [address] Kaur 1 week FELICIANO RAMIREZ MD May 04, 2018 09:24
--- NOTE | 2018-05-04 09:38 | HP ---
DATE OF ADMISSION: 05/03/2018 REASON FOR VISIT: Altered mental status. HISTORY OF PRESENT ILLNESS: A 72-year-old [place] gentleman with history of hypertension, coronary artery disease, hyperlipidemia, and a previous stroke, presented to emergency room with altered menta l status. There was a question of possible syncopal episodes. The patient is a poor historian. Initial evaluation in the emergency room included a CAT scan of the brain. This did not show any acu te changes. The patient had an MRI of brain. This showed multiple foci of acute infarcts in the sup ratentorial and infratentorial brain parenchyma in multiple vascular distribution. This was suggesti ve of embolic stroke. There was moderate diffuse volume loss with moderate to severe microvascular i schemic disease in the periventricular and deep white matter. Multiple chronic cerebellar infarcts w ere noted. Chronic lacunar infarcts in the palms, camarena radiata and centrum semiovale and bilateral thalami were also identified. Multiple foci of chronic microhemorrhages in bilateral cerebral hemis pheres were suggestive of chronic hypertensive microhemorrhages. PAST MEDICAL HISTORY: 1. History of old cerebrovascular accident. 2. Coronary artery disease. 3. Hypertension. 4. Hyperlipidemia. 5. Vascular dementia. MEDICATIONS: Prior to admission: 1. Aspirin 81 mg daily. 2. Aricept 5 mg daily. 3. Lipitor 20 mg daily. 4. Benazepril 40 mg daily. 5. Hydrochlorothiazide 12.5 mg daily. 6. Clonidine 0.1 mg every 6 hours as needed. 7. Coreg 3.125 mg b.i.d. PHYSICAL EXAMINATION: GENERAL: Well-developed, well-nourished gentleman who is in no apparent distress. He is alert and r esponsive. VITAL SIGNS: Stable. He is afebrile. HEENT: Extraocular muscles intact. Pupils equal and reactive to light bilaterally. Sclerae are ani cteric. Oropharynx is clear and moist. NECK: Supple, no JVD, no carotid bruits. LUNGS: Clear to auscultation bilaterally. CARDIAC: Regular rate and rhythm. No murmurs or gallops. ABDOMEN: Soft, nontender, nondistended, normoactive bowel sounds. EXTREMITIES: No clubbing, cyanosis, or edema. NEUROLOGIC: Cranial nerves II through XII are intact. The patient has normal strength bilaterally. Sensation is intact. ASSESSMENT: 1. A 72-year-old male with altered mental status. An MRI of the brain shows multiple areas of acute infarct, suggestive of embolic stroke. The patient had a brief episode of atrial fibrillation durin g that hospitalization. 2. Coronary artery disease. 3. Hypertension. 4. Previous history of cerebrovascular accident. 5. Vascular dementia. 6. Hyperlipidemia. PLAN: Placed in telemetry observation, discontinue Plavix, start Eliquis 5 mg twice daily, check car otid Doppler and a 2D echo, neurology consultation was requested. The patient has been evaluated by Dr. Hutsno. Dictated By: FELICIANO RAMIREZ MD SK/NTS Conf#: [id number] DID#: [id number] CC: FELICIANO RAMIREZ MD;*EndCC*
[2018-05-04] MEDS: HYDROCHLOROTHIAZIDE 12.5 MG CAP PO SCH (10:03)
[2018-05-04] MEDS: DONEPEZIL 5 MG TAB PO SCH (10:03)
[2018-05-04] MEDS: BENAZEPRIL 40 MG TAB PO SCH (10:04)
[2018-05-04] MEDS: FERROUS SULFATE (EC) 325 MG TAB PO SCH (10:04)
[2018-05-04] MEDS: FAMOTIDINE 20 MG TAB PO SCH ×2 (10:04→20:25)
[2018-05-04] MEDS: APIXABAN 5 MG TABLET PO SCH ×2 (10:06→20:25)
--- NOTE | 2018-05-04 15:01 | RADRPT ---
Echocardiogram Report Patient Name: KADIE MEHTAPatient ID: [id number] : 1945 (72y 8m)Study Date: 05/04/2018 7:10:32 AM Gender: MAccession #: [id number] Tech: BradAngely Umanzor [facility] Location: [facility] Ref.Physician: UZAIR CENTENO Height(Cm): BSA: Weight(Kg): Quality: AdequateAccount #: Procedures: Echocardiographic Report: Transthoracic echocardiogram with complete 2D, M-Mode, and doppler examination. Indications: Cerebrovascular Accident. Measurements: 2D/M Mode Doppler Measurement Value Normal Range Measurement Value Normal Range LVIDd 2D 4.3 [ 4.2 - 5.8 ] cm AV Peak Joshua 1.4 [ 100.0 - 170.0 ] cm/sec LVIDs 2D 3.3 [ 2.5 - 4.0 ] cm AV Peak PG 8.0 [ 2.0 - 9.0 ] mmHg LVPWd 2D 1.3 [ 0.6 - 1.0 ] cm AI Peak PG 37.0 mmHg IVSd 2D 1.3 [ 0.6 - 1.0 ] cm AI Peak Joshua 3.0 cm/sec AoR Diam 2D 3.9 [ 2.6 - 3.4 ] cm AI PHT 538.0 msec EDV 2D 84.4 [ 62.0 - 150.0 ] ml LVOT Peak Joshua 0.8 [ 70.0 - 110.0 ] cm/sec ESV 2D 42.5 [ 21.0 - 61.0 ] ml LVOT Peak PG 3.0 [ 2.0 - 6.0 ] mmHg EF 2D 49.6 [ 52.0 - 72.0 ] percent MV E Peak Joshua 0.7 [ 60.0 - 130.0 ] cm/sec LA Dimen 2D 3.0 [ 3.0 - 4.0 ] cm MV A Peak Joshua 0.8 [ 100.0 - 120.0 ] cm/sec MV E/A 0.8 [ 0.8 - 1.5 ] ratio MV Decel Time 215 [ 104 - 258 ] msec Lat E` Joshua 0.1 [ 10.0 - 15.0 ] cm/sec Lateral E/E` 9.1 [ 1.0 - 2.0 ] ratio MV E/A 0.8 [ 0.8 - 1.5 ] ratio TR Peak Joshua 2.1 [ 100.0 - 280.0 ] cm/sec TR Peak PG 18.0 mmHg RVSP 21.0 [ 10.0 - 36.0 ] mmHg RA Pressure 3.0 mmHg Findings: Left Ventricle: Lower limits of normal systolic function. Normal left ventricular cavity size. Mild concentric left ventricular hypertrophy. Ejection fraction is visually estimated at 50-55 %. Tissue Doppler/Mitral Doppler indices are consistent with impaired relaxation (Stage I diastolic dysfunction). Right Ventricle: Normal right ventricular size. Normal right ventricular systolic function. Left Atrium: The left atrium is normal in size. Right Atrium: The right atrium is normal in size. Mitral Valve: Normal appearance and function of the mitral valve with trace physiologic regurgitation. Aortic Valve: No hemodynamically significant aortic stenosis by doppler. Aortic cusps appear mildly calcified. Mild aortic valve regurgitation. Tricuspid Valve: Normal appearance of the tricuspid valve. Estimated peak PA systolic pressure 21 mmHg. There is trace tricuspid regurgitation. Pulmonic Valve: Normal pulmonic valve appearance. Pericardium: Normal pericardium with no significant pericardial effusion. Aorta: Normal aortic root. IVC: Normal size and normal respiratory collapse consistent with normal right atrial pressure. Conclusions: Lower limits of normal systolic function. Normal left ventricular cavity size. Mild concentric left ventricular hypertrophy. Ejection fraction is visually estimated at 50-55 %. Tissue Doppler/Mitral Doppler indices are consistent with impaired relaxation (Stage I diastolic dysfunction). Normal appearance and function of the mitral valve with trace physiologic regurgitation. No hemodynamically significant aortic stenosis by doppler. Aortic cusps appear mildly calcified. Mild aortic valve regurgitation. Normal appearance of the tricuspid valve. Estimated peak PA systolic pressure 21 mmHg. There is trace tricuspid regurgitation. Electronically Signed By: Carlo Caballero 2018-05-04 15:01:09 [facility]
[2018-05-04] MEDS ORDERED: ATORVASTATIN 20 MG TAB PO SCH (21:00)
[2018-05-04] MEDS ORDERED: TAMSULOSIN (SR) 0.4 MG CAP PO SCH (21:00)
--- NOTE | 2018-05-04 21:04 | HKNOTE ---
DATE OF SERVICE: 05/04/2018 SUBJECTIVE: The patient is a 72-year-old status post underlying syncopal attack. Underlying acute s troke in which we started the patient on Plavix besides the aspirin; however, the patient have an epi sode of atrial fibrillation in which we will hold the Plavix and start him on anticoagulation in the form of Eliquis 5 mg twice a day. PHYSICAL EXAMINATION: GENERAL: The patient is alert, awake, looks confused. CRANIAL NERVES: Cranial nerve II: Pupils equal on both sides, reactive to light. Cranial nerves II I, IV and : Extraocular muscles are intact without nystagmus. Cranial nerve V: Equal sensation t o face. Cranial nerve VII: Symmetrical face. Cranial nerve VIII: Decreased hearing bilaterally. Cranial IX and X: Elevates palate. Cranial nerve XI: Elevates shoulder 5/5. Cranial nerve XII: W ith straight tongue. MOTOR: Moving both lower extremities against gravity. Sensation equal for light touch and temperatu re. COORDINATION: Tysbvc-ui-foum test intact. HEART: Regular rate and rhythm. LUNGS: Equal breath sounds. ABDOMEN: Soft, relaxed, nondistended, no tenderness. ASSESSMENT AND PLAN: 1. The patient is 72 years old status post underlying syncopal attack. 2. Underlying acute stroke with the possibility of bowling symptoms which we will order for him a ca rdiac echogram, we will start him under direct Eliquis. 3. History of coronary artery disease and dyslipidemia. Follow up the patient with Lipitor 20 mg on ce a day. 4. Hypertension. Keep the blood pressure at the level of 140/90. 5. Atrial fibrillation, in which the patient already on Eliquis. We will order for him echocardiogr am. 6. History of memory disorder with the possibility of multiple infarctions, dementia, plus/minus Alz heimer. We will follow up the patient as an outpatient for more evaluation and treatment for his dem entia. Dictated By: UZAIR CENTENO MD NA/NTS Conf#: [id number] DID#: [id number] CC: FELICIANO RAMIREZ MD;*EndCC*
[2018-05-05] VITALS (9 sets, daily range): BP systolic 120–152; BP diastolic 70–83; PULSE 57–92; RESP 16–18
[2018-05-05] MEDS: D5W-0.45 NACL + KCL 10 MEQ 1,000 ML IV SCH ×2 (00:24→10:00)
[2018-05-05] MEDS: FAMOTIDINE 20 MG TAB PO SCH (08:34)
[2018-05-05] MEDS: DONEPEZIL 5 MG TAB PO SCH (08:34)
[2018-05-05] MEDS: FERROUS SULFATE (EC) 325 MG TAB PO SCH (08:34)
[2018-05-05] MEDS: BENAZEPRIL 40 MG TAB PO SCH (08:34)
[2018-05-05] MEDS: APIXABAN 5 MG TABLET PO SCH (08:35)
[2018-05-05] MEDS: CLOPIDOGREL 75 MG TAB PO SCH (08:35)
[2018-05-05] MEDS: HYDROCHLOROTHIAZIDE 12.5 MG CAP PO SCH (08:35)
[2018-05-05] MEDS ORDERED: ASPIRIN (EC) 81 MG TAB PO SCH (10:30)
--- NOTE | 2018-05-05 11:00 | PDOCDIS ---
Discharge Instructions CONDITION Vyren2We Patient Condition: Sdlnd1e Fair HOME CARE INSTRUCTIONS: Cdiew2Dy Diet Instructions: Cerke7c y FOLLOW UP/APPOINTMENTS Follow-up Plan pcp [address] Kaur 1 week FELICIANO RAMIREZ MD May 05, 2018 11:00
[2018-05-05] MEDS ORDERED: IOHEXOL 100 ML ONE (11:03)
[2018-05-05] MEDS ORDERED: SOD CHLORIDE 0.9% 100 ML ONE (11:03)
--- NOTE | 2018-05-05 21:31 | DS ---
DATE OF ADMISSION: 05/03/2018 DATE OF DISCHARGE: 05/05/2018 DISCHARGE DIAGNOSES: 1. A 72-year-old male with altered mental status. 2. Acute embolic stroke involving multiple areas of brain. 3. Paroxysmal atrial fibrillation. 4. Multi-infarct dementia. 5. Coronary artery disease. 6. Hypertension. 7. Hyperlipidemia. HOSPITAL COURSE: A 72-year-old [place] gentleman with a history of multiple other medical problems including previous strokes, presented to emergency room with altered mental status. There was no foc al weakness or numbness. MRI of the brain showed multiple puncture with foci of acute infarct in the supratentorial and infratentorial brain parenchyma and multiple vascular distribution suggestive of embolic stroke. There was also evidence of a previous chronic cerebellar infarcts as well as lacunar infarct in the magaly, camarena radiata, centrum semiovale ovale and bilateral thalami. The patient had a brief episode of atrial fibrillation during the hospitalization. Case was discussed with Dr. Liana he. I have started him on Eliquis. Carotid Doppler showed slightly increased internal carotid an d common carotid ratio on the left with no significant increase velocities. The findings are inconcl usive of possible 50% to 69% stenosis. CT angiogram of the neck was ordered. The patient had compla int of dizziness with activity. I recommended intermediate facility placement for physical therap y and rehabilitation. His son refused intermediate facility placement. The patient also had a 2D echo. Ejection fraction was normal. There was no evidence of LV thrombus. The patient will underg o a CT angiogram of the neck prior to discharge. MEDICATIONS ON DISCHARGE: Include: 1. Aspirin 81 mg p.o. daily. 2. Lipitor 20 mg p.o. at bedtime. 3. Benazepril 40 mg p.o. daily. 4. Coreg 3.125 mg p.o. b.i.d. 5. Clonidine 0.1 mg daily. 6. Aricept 5 mg daily. 7. Hydrochlorothiazide 12.5 mg daily. 8. Flomax 0.4 mg daily. 9. Eliquis 5 mg b.i.d. 10. Protonix 40 mg daily. PLAN: 1. Follow up with PCP in 1 week. 2. Follow up with Dr. Hutson in 1 week. Dictated By: FELICIANO MCGRAW/NASRIN Conf#: [id number] [facility]#: [id number] CC: FELICIANO RAMIREZ MD; UZAIR HUTSON MD;*End*
--- NOTE | 2018-05-05 21:44 | HKNOTE ---
DATE OF SERVICE: 05/05/2018 SUBJECTIVE: The patient is a 72-year-old. The patient is status post syncopal attack, acute stroke, atrial fibrillation with the patient on Eliquis 5 mg twice a day, which the patient was stable enoug h and I plan to discharge her. PHYSICAL EXAMINATION: GENERAL: The patient is alert, awake, oriented for time, place, and person. CRANIAL NERVES: Cranial nerve II: Pupils equal on both sides, reactive to light. Cranial nerves II I, IV and : Extraocular muscles intact. No nystagmus. Cranial nerve V: Equal sensation to face. Cranial nerve VII: Symmetrical face. Cranial nerve VIII: Equal hearing bilaterally. Cranial IX and X: Elevates palate. Cranial nerve XI: Elevates shoulder 5/5. Cranial nerve XII: With straigh t tongue. MOTOR: Moving both upper and lower extremities against gravity. Sensation equal for light touch and temperature. COORDINATION: [id number] test intact. HEART: Regular rate and rhythm. LUNGS: Equal breath sounds. ABDOMEN: Soft, relaxed, nondistended, no tenderness. ASSESSMENT AND PLAN: 1. The patient is a 72-year-old status post stroke. Keep the patient on Eliquis 5 mg twice a day. 2. Underlying irregular heartbeat, which the patient needs to follow with char filter tank tender for atrial fi brillation. Continue the patient on Eliquis from now. 3. Syncopal attack, probably secondary to #1. 4. Hypertension. Keep the blood pressure at level 140/90 to avoid any extension of the stroke. 5. Dyslipidemia. Keep the patient on Lipitor 20 mg once a day. 6. Memory disorder with underlying dementia. The patient is on Plavix 5 mg. We will follow up the p atient in outpatient for possible vascular dementia versus Alzheimer. Again, thank you for asking me to see the patient with you. Dictated By: UZAIR CENTENO MD NA/NTS Conf#: [id number] DID#: [id number] CC: FELICIANO RAMIREZ MD;*EndCC*
== END 2018-05-05 18:15 | disposition home health service (06) | DRG 65 ==
LOC: E/R 12:15 → 6WM 17:15
PROVIDERS: ADMIT Internal Medicine; ATTEND Internal Medicine
DX: I63.40 Cerebral infarction due to embolism of unspecified cerebral artery (principal); G81.91 Hemiplegia, unspecified affecting right dominant side; R47.1 Dysarthria and anarthria; R29.703 NIHSS score 3; Z87.891 Personal history of nicotine dependence; I10 Essential (primary) hypertension; E78.5 Hyperlipidemia, unspecified; I25.10 Atherosclerotic heart disease of native coronary artery without angina pectoris; F01.50 Vascular dementia, unspecified severity, without behavioral disturbance, psychotic disturbance, mood disturbance, and anxiety; R00.2 Palpitations; Z79.02 Long term (current) use of antithrombotics/antiplatelets
CPT/HCPCS: 36415; 70450; 70498; 70551; 71045; 80048; 80061; 80076; 80307; 81001; 82550; 82553; 82962; 83036; 83690; 84484; 85025; 85610; 85730; 87081; 92610; 93005; 93306; 93880; 95819; 96374; 97110; 97116; 97162; 97530; J0696; J2405; J3480; J7030; Q9967